=== PATIENT | female | born 1950 | race Caucasian/White ===

== ENCOUNTER 2016-11-23 03:26 | Emergency (ER) ==
[2016-11-23 03:35] VITALS: BP 145/71; TEMP 100; BMI 32.9
[2016-11-23] MEDS ORDERED: ZITHROMAX PO STA (04:09)
[2016-11-23] MEDS ORDERED: PREDNISONE PO STA (04:09)
--- NOTE | 2016-11-23 04:16 | ED.PDOC ---
General ED Provider: Dr. IDRIS NIETO Chief Complaint: Cough Stated Complaint: Pateint is a 66 year old who complains of cough conjestion and right ear ache for several days. Time Seen by Physician: 04:13 Mode of Arrival: Walk-In Information Source: Patient Exam Limitations: No limitations Primary Care Provider: SON RESTREPO Nursing and Triage Documentation Reviewed and Agree: Yes Respiratory Complaint Exam - Respiratory Complaint/Exam Onset/Duration: few days Timing: Constant Initial Severity: Mild Current Severity: Mild Location: Throat, Chest Character: Reports: Non-productive cough Aggravating: Reports: URI, Passive smoke exposure, Weather Alleviating: Reports: None Associated Signs and Symptoms: Reports: Fever, URI, Sore throat. Denies: Rapid breathing, Dyspnea, Chills, Chest pain, Pleuritic chest pain, Wheezing, Hemoptysis, Dizziness, Calf pain, Calf swelling, Edema, Nasal congestion, Hoarseness, Sinus discomfort, Vomiting, Weight loss, Decreased oral intake, Increased thirst, Increased appetite, Increased urination History of Healthcare-Acquired Pneumonia: No Related Surgical History: Reports: None Pulmonary Embolism Risk Factors: None Cardiac Risk Factors: Reports: None Pseudomonas Risk Factors: Reports: None Tuberculosis Risk Factors: Reports: None Status Asthmaticus Risk Factors: Reports: None Home Oxygen Use: No Recent Stress Test: No Recent Echo/LV Function: No Current Antibiotic Use: No Current Asthma Medication Use: No Respiratory Distress: None Inadequate Respiratory Effort: No Dysphagia Present: No Stridor Present: No JVD Present: No Accessory Muscle Use: No Grunting Respirations: No Kussmaul Respirations: No Differential Diagnoses: Bronchitis, URI Review of Systems - Review Of Systems Constitutional: Reports: Fever Eyes: Reports: No symptoms Ears, Nose, Mouth, Throat: Reports: Ear pain, Throat pain Respiratory: Reports: Cough Cardiac: Reports: No symptoms GI: Reports: No symptoms : Reports: No symptoms Musculoskeletal: Reports: No symptoms Skin: Reports: No symptoms Neurological: Reports: Anxiety Endocrine: Reports: No symptoms Hematologic/Lymphatic: Reports: No symptoms All Other Systems: Reviewed and Negative Past Medical History - Past Medical History Previously Healthy: No Endocrine: Reports: None Cardiovascular: Reports: None Respiratory: Reports: None Hematological: Reports: None Gastrointestinal: Reports: Liver (HEP C) Genitourinary: Reports: Kidney stones Neuro/Psych: Reports: None Musculoskeletal: Reports: None, Joint Pain (TODAY PROX PHANANX AND [facility]), Unknown Cancer: Reports: None, Unknown Last Menstrual Period: na - Surgical History General Surgical History: Reports: Unknown - Family History Family History: Reports: Unknown - Social History Smoking Status: Current every day smoker, Light tobacco smoker Hx Substance Use: No Alcohol Screening: None - Immunizations Tetanus Shot up to Date: Yes Physical Exam - Physical Exam Appearance: Ill-appearing, Obese Ill-appearing: Moderate Pain Distress: Moderate Eyes: GARCIA, EOMI, Conjunctiva clear ENT: Ears normal, Nose normal, Oropharynx normal Neck: Supple Respiratory: Airway patent, Breath sounds equal, Breath sounds diminished, Respirations nonlabored Cardiovascular: RRR, Pulses normal, No rub, No murmur GI/: Soft, Nontender, No masses, Bowel sounds normal, No Organomegaly Musculoskeletal: Normal strength, ROM intact, No edema, No calf tenderness Skin: Warm, Dry, Normal color Neurological: Sensation intact, Motor intact, Reflexes intact, Cranial nerves intact, Alert, Oriented Psychiatric: Anxious Critical Care Note - Critical Care Note Total Time (mins): 0 Course - Course Orders, Labs, Meds: Orders Category Date Time Status Cephalexin [Keflex] MEDS 11/23/16 04:22 Discontinued 500 mg PO ONCE STA Prednisone MEDS 11/23/16 04:09 Discontinued 60 mg PO ONCE STA Medications Discontinued Medications Generic Name Dose Route Start Last Admin Trade Name Ulyssesq PRN Reason Stop Dose Admin Cephalexin 500 mg 11/23/16 04:22 11/23/16 04:25 Keflex PO 11/23/16 04:23 500 mg ONCE STA Administration Prednisone 60 mg 11/23/16 04:09 11/23/16 04:26 Prednisone PO 11/23/16 04:10 60 mg ONCE STA Administration Vital Signs: Temp Pulse Resp BP Pulse Ox 11/23/16 03:28 100 F H 89 24 145/71 H 94 L Departure - Departure Time of Disposition: 04:14 Disposition: HOME SELF-CARE Discharge Problem: Acute bronchitis Qualifiers: Bronchitis organism: other organism Qualifier Code: (J20.8) Acute bronchitis due to other specified organisms Instructions: Acute Bronchitis (ED) Condition: Fair Pt referred to PMD for follow-up: Yes Additional Instructions: quit smoking Take Antibiotics as steroids as prescribed. Follow up with PCP in 3 days Prescriptions: Cephalexin [Keflex] 500 mg PO Q8HR #20 capsule Methylprednisolone [Medrol Dosepak] 4 mg PO DIRECTED #1 pkg Allergies/Adverse Reactions: Allergies Penicillins Adverse Reaction (Verified 11/23/16 03:40) mycins Adverse Reaction (Uncoded 11/23/16 03:40) Home Medications: Ambulatory Orders Budesonide/Formoterol Fumarate [Symbicort 80-4.5 Mcg Inhaler] 2 puff IH BID PRN 11/23/16 Bupropion HCl [Wellbutrin Xl] 300 mg PO DAILY 11/23/16 Cephalexin [Keflex] 500 mg PO Q8HR #20 capsule 11/23/16 Dicyclomine HCl 10 mg PO TID 11/23/16 Ergocalciferol (Vitamin D2) [Vitamin D2] 50,000 unit PO WEEKLY 11/23/16 Furosemide 40 mg PO TID 11/23/16 Hydroxyzine Pamoate 25 mg PO QID 11/23/16 Ipratropium/Albuterol Neb [Duoneb] 1 vial NEB .ONCE PRN 11/23/16 Lactulose 30 gm PO QID 11/23/16 Methylprednisolone [Medrol Dosepak] 4 mg PO DIRECTED #1 pkg 11/23/16 Spironolactone [Aldactone] 300 mg PO TID 11/23/16 Tramadol HCl 50 mg PO DIRECTED PRN 11/23/16 Vitamin A 10,000 unit PO 3 TIMES PER WEEK 11/23/16 Disposition Discussed With: Patient, Family
[2016-11-23] MEDS ORDERED: KEFLEX PO STA (04:22)
== END 2016-11-23 04:38 | disposition home or self-care (01) ==
LOC: ED 03:26
DX: J20.8 Acute bronchitis due to other specified organisms (principal); F17.210 Nicotine dependence, cigarettes, uncomplicated; Z79.899 Other long term (current) drug therapy
CPT/HCPCS: 99282